=== PATIENT | male | born 1965 | race Caucasian/White ===

== ENCOUNTER → 2018-06-10 | Outpatient (RCR) | payer OTHER | LOC: M PT 05-21 07:09 | PROVIDERS: ATTEND Orthopaedic Surgery | DX: M75.51 Bursitis of right shoulder (principal); M75.21 Bicipital tendinitis, right shoulder ==

== ENCOUNTER 2018-06-13 07:22 | Outpatient (RCR) | payer OTHER | END 2018-07-11 | LOC: M PT 07:22 | PROVIDERS: ATTEND Orthopaedic Surgery | DX: M75.51 Bursitis of right shoulder (principal); M75.21 Bicipital tendinitis, right shoulder ==

== ENCOUNTER 2018-08-07 07:43 | Outpatient (RCR) | payer OTHER | END 2018-08-10 | LOC: M PT 07:43 | PROVIDERS: ATTEND Orthopaedic Surgery | DX: S46.812D Strain of other muscles, fascia and tendons at shoulder and upper arm level, left arm, subsequent encounter (principal); X58.XXXD Exposure to other specified factors, subsequent encounter; Y92.9 Unspecified place or not applicable ==

== ENCOUNTER 2018-09-09 16:00 | Outpatient (RCR) | payer OTHER | END 2018-09-10 | LOC: M PT 16:00 | PROVIDERS: ATTEND Orthopaedic Surgery | DX: Z47.89 Encounter for other orthopedic aftercare (principal); Z98.890 Other specified postprocedural states; M25.512 Pain in left shoulder ==

== ENCOUNTER 2018-10-09 15:49 | Outpatient (RCR) | payer OTHER | END 2018-10-11 | LOC: M PT 15:49 | PROVIDERS: ATTEND Orthopaedic Surgery | DX: Z47.89 Encounter for other orthopedic aftercare (principal); Z98.890 Other specified postprocedural states; M25.512 Pain in left shoulder ==

== ENCOUNTER → 2018-10-14 | Outpatient (CLI) | payer OTHER ==
[2018-10-14 19:58] LABS: CHLAMYDIA DNA AMPLIFICATION NEGATIVE (NEGATIVE); GC DNA AMPLIFICATION NEGATIVE (NEGATIVE)
[2018-10-15 14:05] LABS: HEPATITIS A ANTIBODY IGM NEGATIVE (NEGATIVE); HEPATITIS B CORE ANTIBODY IGM NEGATIVE (NEGATIVE); HEPATITIS B SURFACE ANTIGEN NEGATIVE (NEGATIVE); HIV 1&2 SCREEN CENTAUR NEGATIVE (NEGATIVE)
[2018-10-16 08:06] LABS: HSV TYPE I IgG SPECIFIC <0.91 index (0.00-0.90); HSV TYPE II IgG SPECIFIC <0.91 index (0.00-0.90)
== END ==
LOC: M WUC 14:22
PROVIDERS: ATTEND Physician Assistant
DX: Z72.51 High risk heterosexual behavior (principal)

== ENCOUNTER 2018-11-04 15:58 | Outpatient (RCR) | payer OTHER | END 2018-11-10 | LOC: M PT 15:58 | PROVIDERS: ATTEND Orthopaedic Surgery | DX: Z47.89 Encounter for other orthopedic aftercare (principal); Z98.890 Other specified postprocedural states; M25.512 Pain in left shoulder ==

== ENCOUNTER 2018-11-13 15:56 | Outpatient (RCR) | payer OTHER | END 2018-12-11 | LOC: M PT 15:56 | PROVIDERS: ATTEND Orthopaedic Surgery | DX: Z47.89 Encounter for other orthopedic aftercare (principal) ==

== ENCOUNTER 2019-04-22 11:19 | Day surgery (SDC) | payer OTHER ==
[~2019-04-22] VITALS: Ht 175.3 cm; Wt 68.0 kg
[~2019-04-22 11:19] MED LIST: CETI-36 PO; FLON1SPR; MIRA3350 PO; MULTCAP PO; NS 1,000 ML IV ONE; VITA500C24 PO
--- NOTE | 2019-04-22 13:21 | ROOR ---
Patient Name: Musa Hong Procedure Date: 04/22/2019 12:46 PM Date of : 1965 Age: 53 Room: [facility] Gender: Male Note Status: Finalized Procedure: Colonoscopy Indications: High risk colon cancer surveillance: Personal history of colonic polyps Providers: Mook Lyon MD Referring MD: Merrick Quiroga Md Requesting Provider: Medicines: Monitored Anesthesia Care Complications: No immediate complications. Procedure: Pre-Anesthesia Assessment: - Prior to the procedure, a History and Physical was performed, and patient medications and allergies were reviewed. The patient is competent. The risks and benefits of the procedure and the sedation options and risks were discussed with the patient. All questions were answered and informed consent was obtained. Patient identification and proposed procedure were verified by the physician, the nurse and the anesthesiologist in the endoscopy suite. Mental Status Examination: alert and oriented. Airway Examination: normal oropharyngeal airway and neck mobility. Respiratory Examination: clear to auscultation. CV Examination: normal. Prophylactic Antibiotics: The patient does not require prophylactic antibiotics. Prior Anticoagulants: The patient has taken no previous anticoagulant or antiplatelet agents. ASA Grade Assessment: II - A patient with mild systemic disease. After reviewing the risks and benefits, the patient was deemed in satisfactory condition to undergo the procedure. The anesthesia plan was to use monitored anesthesia care (MAC). Immediately prior to administration of medications, the patient was re-assessed for adequacy to receive sedatives. The heart rate, respiratory rate, oxygen saturations, blood pressure, adequacy of pulmonary ventilation, and response to care were monitored throughout the procedure. The physical status of the patient was re-assessed after the procedure. The Colonoscope was introduced through the anus and advanced to the cecum, identified by appendiceal orifice and ileocecal valve. The colonoscopy was performed without difficulty. The patient tolerated the procedure well. The quality of the bowel preparation was good. Findings: Hemorrhoids were found on perianal exam. The colon (entire examined portion) appeared normal. Non-bleeding external and internal hemorrhoids were found during retroflexion and during perianal exam. The hemorrhoids were moderate and medium-sized. Impression: - Hemorrhoids found on perianal exam. - The entire examined colon is normal. - Non-bleeding external and internal hemorrhoids. - No specimens collected. Recommendation: - Repeat colonoscopy in 5 years for surveillance. Mook Lyon MD Mook Lyon MD 04/22/2019 1:21:19 PM Electronically signed by Mook Lyon MD Number of Addenda: 0 Note Initiated On: 04/22/2019 12:46 PM Estimated Blood Loss: Estimated blood loss: none.
[2019-04-22 13:40] VITALS: BP 122/79
== END 2019-04-22 14:20 | disposition home or self-care (01) ==
LOC: M OPP 11:19
PROVIDERS: ATTEND Surgery
DX: Z12.11 Encounter for screening for malignant neoplasm of colon (principal); Z86.010 Personal history of colon polyps; K64.8 Other hemorrhoids; Z87.891 Personal history of nicotine dependence